=== PATIENT | female | born 1980 | race Caucasian/White ===

== ENCOUNTER 2022-04-18 07:03 | Outpatient (CLI) | payer BC, SELFPAY ==
[2022-04-18 07:39] LABS: Anion Gap 12 mmol/L (8-16); Blood Urea Nitrogen 9 mg/dL (7-17); Calcium 9.4 mg/dL (8.4-10.2); Carbon Dioxide 23 mmol/L (22-30); Chloride 101 mmol/L (98-107); Estimated Glomerular Filt Rate > 60; Glucose 120 mg/dL (65-110); Potassium 4.4 mmol/L (3.4-5.0); Sodium 136 mmol/L (137-145)
--- NOTE | 2022-04-18 07:41 | ECG_ITS ---
Measurements Intervals [place] Rate: 90 P: 48 IL: 162 QRS: 44 QRSD: 84 T: 24 QT: 341 QTc: 418 Interpretive Statements SINUS RHYTHM NO PREVIOUS ECG AVAILABLE FOR COMPARISON Electronically Signed On 04-18-2022 13:07:13 CDT by Heladio Linder M.D.
== END 2022-04-18 07:04 | disposition home or self-care (01) ==
LOC: ANHLAB 07:07
PROVIDERS: Visit Provider Anesthesiology
DX: I10 Essential (primary) hypertension (principal); Z79.899 Other long term (current) drug therapy; Z01.818 Encounter for other preprocedural examination
CPT/HCPCS: 36415; 80048; 93005

== ENCOUNTER 2022-04-22 00:45 | Day surgery (SDC) | payer BC, SELFPAY ==
[2022-04-16 10:36] VITALS: BMI 38.6
--- NOTE | 2022-04-16 10:42 | PC.NURSE ---
Report to the Outpatient Waiting Room, entrance under the green pavilion located off [facility], at time 10:00 on date 04/22/22. Planned Procedure Time: 12:00. Time changes happen often and if your time is changed the preop area will call you the afternoon before. - You and your visitor will be asked to self-screen and do not enter if you have any COVID symptoms. - We encourage only one visitor and NO visitors under age 16 are allowed at this time. Your visitor will receive communication by the phone number that is given day of service. - The patient visitor is requested to social distance or may leave the building when not with patient due to restrictions. - A mask is OPTIONAL within the hospital. Patients may have clear liquids (water, carbonated beverages, clear teas, apple juice) until 3 hours prior to surgery (9:00) with a maximum of 20 ounces. - No food from midnight until time of surgery Take the following medications with a SIP of water the morning of surgery: N/A Medications to discontinue per physician: N/A Date to take last dose: N/A Please no make-up, nail citizen of [place], hairspray, perfume, deodorant, or body powder the day of surgery. No jewelry (including any body piercings) or valuables the day of surgery, leave them at home. Please take a shower or bath the night before, or the morning of, surgery with an antibacterial soap. Wear comfortable, loose fitting clothing. - Jewelry must be removed prior to entering the operating room. Rings and piercings that are not removed may be cut off. - The hospital will not accept responsibility for valuables. - Please leave all valuables, including medications, at home the day of surgery. If you are going home after surgery, a licensed cdl dedicated truck driver must drive you home. - NO public transportation without another adult. - We recommend that an adult stay with you for 24 hours following discharge. - We also recommend that you do not drive, make important decision, drink alcoholic beverages, or take any drugs that were not prescribed by your health care provider for at least 24 hours after your discharge time. Follow any additional instructions given to you from your surgeon. If you or anyone in your household have experienced Covid symptoms in the past week, please notify your surgeon or the nurse liaison at the phone number below for possible testing. Telephone instructions given to PT - OLGA MCLEAN and asked if any additional questions and then verbalized understanding. Patient advised to call surgeon office or pre surgery nurse liaison [phone] if any additional questions.
[2022-04-22] VITALS (7 sets, daily range): BP systolic 121–152; BP diastolic 63–91; PULSE 90–113; RESP 10–16; TEMP 36.3–36.6; O2SAT 99–100
[2022-04-22] MEDS: ACETAMINOPHEN 500 MG TABLET 1000 MG PO (10:02)
[2022-04-22] MEDS: LACTATED RINGERS 1,000 ML 30 ML IV CONT ×2 (10:09→13:31)
[2022-04-22] MEDS: KETOROLAC 15 MG/ML VIAL (*BKC) IV PUSH (10:10)
--- NOTE | 2022-04-22 10:16 | WPDANESEPPF ---
Anes - Initial Pre Proc Eval Procedure: Operation Date: 04/22/22 12:00 Proposed Procedures p Hysteroscopy with Dilation and Curettage, Endometrial Novasure Ablation, Laparoscopic Bilateral Salpingectomy - Julissa Newman MD Date/Time: 04/22/22 10:16 Surgeon: Julissa Newman MD Pre Op Diagnosis: AUB, Encounter for Sterilization Patient Data Age: 42 Gender: F Height: 1.63 m Weight: 102.06 kg Allergies Allergy/AdvReac Type Severity Reaction Status Date / Time latex Allergy Intermediate Itching Verified 04/22/22 09:59 nickel Allergy Intermediate Itching Verified 04/22/22 09:59 Home Medications Medication Instructions Recorded Confirmed Type L norgest/E estradiol-E estrad 1 tablet PO HS 04/16/22 04/22/22 History 0.15 mg-30 mcg (84)/10 mcg(7) tabs,3mos (Ashlyna) amlodipine 10 mg tablet 10 mg PO HS 04/16/22 04/22/22 History bupropion HCl 75 mg tablet 75 mg PO HS 04/16/22 04/22/22 History spironolactone 50 mg tablet 50 mg PO HS 04/16/22 04/22/22 History Patient hx anesthesia problems: none Family hx anesthesia problems: none Results Review: All pre-operative results and documents have been reviewed as part of the pre-operative evaluation. [facility] Past Medical History Medical History (Updated 04/22/22 @ 10:20 by Leander Spears MD) Anal fistula Obesity Family History Family History Other Asthma Cerebrovascular accident Depression Diabetes mellitus Family history of glaucoma Family history of hearing loss Family history of kidney disease Family history of mental disorder Family history of obesity Family history of osteoporosis Social History Social History Years smoked: 15 Smoking status: Former smoker Tobacco type: cigarettes Smoking end date: 06/21/09 Alcohol intake: current Drinks per week: 1 Substance use: never Substance use type: does not use Living arrangements: with family Spiritual care concerns: No Anes - Eval Final PreProcedure Day of Procedure 04/22/22 10:16 Patient weight: obese Heart: regular rate and rhythm Lungs: clear to auscultation Airway: Mallampati scale class II Neurological: alert and oriented Last oral intake: >/= 8 hours ASA classification: II Emergent: no Anesthesia type and monitoring: general Results Review: All pre-operative results and documents have been reviewed as part of the pre-operative evaluation. Informed Consent: The patient's anesthetic plan and its attendant risks and benefits were discussed with the patient/family/POA. Questions were solicited and answers provided to the satisfaction of the patient/family/POA.
[2022-04-22] MEDS: SCOPOLAMINE 1.5 MG PATCH TRANSDERM (10:47)
--- NOTE | 2022-04-22 11:32 | PM.HPGS ---
History of Present Illness History of Present Illness Consent: Risks, benefits, and alternatives have been discussed and questions answered. Patient agrees to proceed with procedure. Chief complaint: AUB, Encounter for Sterilization Narrative: Blake Baird is a 42 year old female Has spotting in between heavy menstrual cycles.? Paternal GPA had Breast cancer and aunt had a female cancer of some sort.??Discussed endometrial ablation and plan for tubal sterilization she would like the option of bilateral salpingectomy given her family history Review of Systems Review of Systems: -CP/-SOB/-F/S/C/-Dysuria/-Hematuria/-abdominal pain PMFSH Past Medical History Medical History Anal fistula Obesity Family History Family History Other Asthma Cerebrovascular accident Depression Diabetes mellitus Family history of glaucoma Family history of hearing loss Family history of kidney disease Family history of mental disorder Family history of obesity Family history of osteoporosis Social History Social History Years smoked: 15 Smoking status: Former smoker Tobacco type: cigarettes Smoking end date: 06/21/09 Alcohol intake: current Drinks per week: 1 Substance use: never Substance use type: does not use Living arrangements: with family Spiritual care concerns: No Meds Home Medications and Allergies Home Medications Medication Instructions Recorded Confirmed Type L norgest/E estradiol-E estrad 1 tablet PO HS 04/16/22 04/22/22 History 0.15 mg-30 mcg (84)/10 mcg(7) tabs,3mos (Ashlyna) amlodipine 10 mg tablet 10 mg PO HS 04/16/22 04/22/22 History bupropion HCl 75 mg tablet 75 mg PO HS 04/16/22 04/22/22 History spironolactone 50 mg tablet 50 mg PO HS 04/16/22 04/22/22 History Allergies Allergy/AdvReac Type Severity Reaction Status Date / Time latex Allergy Intermediate Itching Verified 04/22/22 09:59 nickel Allergy Intermediate Itching Verified 04/22/22 09:59 Vital Signs Vital Signs - 24 hr 04/22/22 09:50 Temperature 36.6 C Pulse Rate 113 H Respiratory Rate 16 Blood Pressure 147/71 H Pulse Oximetry 100 Oxygen Delivery Room Air Exam Const: General: cooperative, healthy appearing, comfortable and no acute distress HENMT: Head: normal to inspection, normocephalic and atraumatic Eyes: General: appearance normal, both eyes and all related structures Chest: Other: Non labored respirations Cardio: Other: Normal rate/rhythm GI: Other: No abdominal pain/rebound Back/Spine/Pelvis: Other: FROM all limbs Neuro: Other: AxOx3 Psych: Other: affect consistent with normal mood Assessment and Plan Assessment and plan (1) Abnormal uterine bleeding: Code(s): N93.9 - Abnormal uterine and vaginal bleeding, unspecified Status: Acute Assessment and Plan: Endometrial biopsy benign (2) Excessive and frequent menstruation with regular cycle: Code(s): N92.0 - Excessive and frequent menstruation with regular cycle Status: Acute Assessment and Plan: Plan is hysteroscopy with endometrial ablation (3) Encounter for sterilization: Code(s): Z30.2 - Encounter for sterilization Status: Acute Assessment and Plan: Desired bilateral salpingectomy due to hx of 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 Plan Risk/benefits/alternatives discussed
--- NOTE | 2022-04-22 11:36 | WPDHPUPDATE1 ---
History and Physical Update Update Date/Time: 04/22/22 11:36 History and Physical has been reviewed, including an updated exam of the patient. There are NO changes in the patient's condition. Risks, benefits, and alternatives have been discussed and questions answered. Patient agrees to proceed with procedure.
[2022-04-22] MEDS: BUPIVACAINE/EPINEPHRINE 0.25% 50 ML VIAL 200 ML INFILTRATE (13:06)
--- NOTE | 2022-04-22 13:16 | SUR.OPER ---
Novasure: length- 5.0, width- 2.5, power- 69, time- 1 minute and 20 seconds
--- NOTE | 2022-04-22 13:24 | W.PM.PROC2 ---
Procedure Note - Detailed Date of Procedure 04/22/22 Pre-op Diagnosis AUB, Encounter for Sterilization Post-op Diagnosis Other (AUB, fundal pedunculated fibroid, sterilization) Procedure Performed laparoscopy bilateral salpingectomy with hysteroscopy and endometrial ablation with NOVASURE Surgeon Julissa Newman MD Anesthesia General Indications Blake was having AUB/frequent heavy cycles and desired permanent sterilization. Risk/benefits/alternatives discussed after EMB was found to be benign and she decided to proceed with hysteroscopy ablation with tubal sterlization via bilateral salpingectomy (due to FH of female pelvic cancers/ovarian cancer. Findings Normal tubes and ovaries. No adhesions. Small fundal fibroid/pedunculated, wide based. Description of Procedure The patient was taken to the operating room where general anesthesia was found to be adeuqate. She was then prepared and draped in the dorsal lithotomy position in [facility]. A patricia catheter was placed. A speculum was used to visualize the cervix and a single toothed tenaculum placed on the anterior lip. Uterus sounded to 8cm. Cervix measured 3cm. Cavity length determined to be 5 cm. CatchThatBus uterine manipulator placed and affixed to the tenaculum and the speculum removed. Attention was then turned to the umbilicus which was injected with 0.5% marcaine with epinephrine, incised in the infraumbilical fold and subcutaneous tissue with hemostat. Attempted with veres needle but unable to enter peritoneum due to patient size. So incision was slightly extended and the fascia grasp with Kochers and incised with a scalpel. Hemostat entered and 5mm port placed directly. Abdomen inflated to 15mmHg and camera inserted. There were no adhesions and the patient was then placed in Trendelenberg. The uterus was elevated. There was a fundal fibroid noted, small ~2cm in size pedunculated with a wide base. The ovaries and tubes appeared normal. So two lower port sites were placed. First on the left, 2cm medial to the ASIS by injecting the skin with local anesthesia, incising with a scalpel and a 5mm balloon trochar placed with direct visualization. Similarly on the right, a third trocar was placed. The left fallopian tube was then grasp by the fimbria and pulled medial and the 5mm ligasure used to cauterize the tuboovarian ligament with good hemostasis. It was then amputated at its base. The serosa was then cauterized for good hemostasis. The tube was removed through the 5mm port and handed off for pathology. The right tube was then pulled medially by the fimbria, and the tuboovarian ligament then cauterized and with the ligasure as well with good hemostasis. The base was then transected and the tube amputated and pulled through the 5mm port site and sent off for pathology. Again, the serosa cauterized for good hemostasis. The laparoscopy was then complete so the camera removed and the insufflation released. The ports removed and skin closed with 4-0 monocryl in an interrupted fashion and covered with tegaderm. Attention was then turned back to the cervix which was serially dilated with Hegar dilators and hysteroscope inserted with saline distension. No intracavitary lesions/masses noted. Narrow fundal width but bilateral tubes visible. So hysteroscope removed and Novasure prepared. It was inserted into the cervix and deployed with a width measured to be 2.5cm. Cavity assessment passed and ablation began until appropriate Ohms were reached. 1min 20 sec passed. The device was removed and hysteroscope reinserted. Adequate ablation noted throughout the endometrium. Hysteroscope removed and tenaculum removed. No active bleeding. Speculum and patricia then removed. The patient tolerated the procedure well. All sponge lap and needle counts were correct. The patient was taken to recovery in stable condition. Estimated Blood Loss 10 Urine Output 25 Pathology Yes (kenneth
[2022-04-22] MEDS: ONDANSETRON INJ 4 MG/2 ML VIAL IV PUSH (14:36)
== END 2022-04-22 15:23 | disposition home or self-care (01) ==
PROVIDERS: Visit Provider Obstetrics & Gynecology
PROC: 0UDB8ZZ Extraction of Endometrium, Via Natural or Artificial Opening Endoscopic (ICD-10-PCS; CPT 58558; principal; 2022-04-22 12:00)
DX: N92.0 Excessive and frequent menstruation with regular cycle (principal); Z30.2 Encounter for sterilization; D25.9 Leiomyoma of uterus, unspecified; Z87.891 Personal history of nicotine dependence; E66.9 Obesity, unspecified; Z68.39 Body mass index [BMI] 39.0-39.9, adult
CPT/HCPCS: 58661; 58563; 36415; 80048; 88302; 93005; A9270; J1100; J1885; J2250; J2405; J2704; J2710; J3010; J7030; J7120